=== PATIENT | female | born 1970 ===

== ENCOUNTER 2022-02-25 04:51 | Emergency (ER) | payer SELFPAY ==
[2022-02-25] MEDS ORDERED: Ondansetron PF 4 MG/2 ML Vial ONE (06:10)
[2022-02-25] MEDS ORDERED: Morphine 4 MG/ML VIAL ONE ×2 (06:10→06:29)
[2022-02-25 06:51] LABS: #Basophils 0.1 thou/uL (0.0-0.2); #Eosinphils 0.2 thou/uL (0.0-0.7); #Lymphocytes 2.2 thou/uL (1.20-3.40); #Monocytes 0.4 thou/uL (0.11-0.59); #Neutrophils 2.7 thou/uL (1.40-6.50); %Basophils 1.2 % (0.0-1.0); %Eosinophils 4.4 % (0.0-10.0); %Lymphocytes 38.6 % (21.0-51.0); %Neutrophils 48.8 % (42.0-75.0); Hemoglobin 15.5 g/dL (12.0-16.0); Mean Corpuscular HGB CONC 32.7 g/dL (32.0-36.0); Mean Corpuscular Volume 91.7 fL (78.0-98.0); Mean Platelet Volume 7.4 fL (7.4-10.4); Platelet Count 257 thou/uL (130-400); RBC Distribution Width 12.7 % (11.5-14.5); Red Blood Cell (RBC) Count 5.16 mill/uL (4.20-5.40); White Blood Cell (WBC) Count 5.6 thou/uL (4.8-10.8)
[2022-02-25 06:59] LABS: Prothrombin Time 12.8 sec (12.0-14.7)
[2022-02-25 07:00] LABS: PTT 30.2 sec (22.9-36.1)
[2022-02-25 07:02] LABS: ALT (SGPT) 29 U/L (8-55); AST (SGOT) 20 U/L (5-34); Albumin 4.2 g/dL (3.5-5.0); Alkaline Phosphatase 89 U/L (40-110); Anion Gap 12 mmol/L (10-20); BUN (Urea Nitrogen) 15 mg/dL (7.0-18.7); Bilirubin, Total 0.4 mg/dL (0.2-1.2); Calc. Creatinine Clearance 0 mL/min (70-130); Calcium 9.5 mg/dL (7.8-10.44); Carbon Dioxide 27 mmol/L (22-29); Chloride 105 mmol/L (98-107); Estimated GFR 80; Globulin 3.2 g/dL (2.4-3.5); Glucose 102 mg/dL (70-105); Protein, Total 7.4 g/dL (6.0-8.3); Sodium 140 mmol/L (136-145)
[2022-02-25] MEDS ORDERED: HYDROmorphone 0.5 MG/0.5 ML SYRINGE ONE (07:33)
== END 2022-02-25 08:12 | disposition home or self-care (01) ==
LOC: ERS 04:51
DX: K62.89 Other specified diseases of anus and rectum (principal); I10 Essential (primary) hypertension; F17.210 Nicotine dependence, cigarettes, uncomplicated
CPT/HCPCS: 36415; 74177; 80053; 85025; 85610; 85730; 96374; 96375; 96376; J1170; J2270; J2405